=== PATIENT | male | born 1990 | race Caucasian/White ===

== ENCOUNTER 2018-06-07 15:52 | Outpatient (RCR) | payer BC ==
[2018-06-07 16:45] LABS: SEMEN VOLUME 2.2 ML (1.5-5.0)
== END 2018-09-05 | disposition home or self-care (01) ==
LOC: LAB 15:52
PROVIDERS: ATTEND Family Medicine
DX: N46.9 Male infertility, unspecified (principal)
CPT/HCPCS: 89320